=== PATIENT | male | born 1960 | race Caucasian/White ===

== ENCOUNTER → 2018-10-08 17:17 | Outpatient (CLI) | payer MEDICARE, SELFPAY ==
[2018-10-08 17:40] LABS: Basophils # 0.1 K/mm3 (0-0.2); Basophils % 0.7 % (0.1-2.0); Eosinophils # 0.2 K/mm3 (0.0-0.4); Eosinophils % 1.6 % (0.1-12.0); Hematocrit 50.8 % (42.0-52.0); Hemoglobin 15.9 g/dL (14.1-18.0); Lymphocytes # 2.4 K/mm3 (0.7-4.5); Lymphocytes % 23.5 % (10-50); Mean Corpuscular HGB Conc 31.3 g/dL (31.8-35.4); Mean Corpuscular Hemoglobin 33.2 pg (27.0-31.2); Mean Corpuscular Volume 105.9 fl (80-94); Mean Platelet Volume 7.8 fl (7.4-10.4); Monocytes # 0.7 K/mm3 (0.1-1.0); Monocytes % 6.8 % (1.7-9.3); Neutrophils % 67.5 % (37.0-80.0); Platelet Count 224 K/mm3 (142-424); Red Blood Count 4.79 M/mm3 (4.60-6.20); Red Cell Distribution Width 13.6 % (11.5-17.5); White Blood Count 10.3 K/mm3 (4.8-10.8)
[2018-10-08 18:08] LABS: Erythrocyte Sedimentation Rate 15 mm/hr (0-20)
[2018-10-08 19:49] LABS: Hemoglobin A1C 7.5 % (0.0-7.0)
[2018-10-08 20:02] LABS: Alanine Aminotransferase 31 U/L (12-78); Albumin Level 2.8 gm/dL (3.4-5.0); Albumin/Globulin Ratio 0.7 (1.1-1.8); Alkaline Phosphatase 69 U/L (46-116); Anion Gap 13.9 mEq/L (5-15); Aspartate Amino Transferase 17 U/L (15-37); Bilirubin,Total 0.8 mg/dL (0.2-1.0); Blood Urea Nitrogen 13 mg/dL (7-18); C-Reactive Protein 8.2 mg/L (0.0-0.9); Calcium 8.7 mg/dL (8.5-10.1); Carbon Dioxide 28 mmol/L (21.0-32.0); Chloride 101 mmol/L (98-107); Estimated Glomerular Filt Rate 87 ml/min (>60); GFR (African American) 105 ML/MIN (>60); Globulin 4.3 gm/dl (1.3-3.2); Glucose 159 mg/dL (74-106); Potassium 3.9 mmoL/L (3.5-5.1); Sodium 139 mmol/L (136-145); Total Protein,Serum 7.1 gm/dL (6.4-8.2)
== END ==
PROVIDERS: Visit Provider Podiatrist
DX: L08.9 Local infection of the skin and subcutaneous tissue, unspecified (principal); Z51.89 Encounter for other specified aftercare; E11.9 Type 2 diabetes mellitus without complications
CPT/HCPCS: 36415; 80053; 83036; 85025; 85651; 86140

== ENCOUNTER 2018-10-10 20:35 | Observation (INO) ==
--- NOTE | 2018-10-10 21:55 | Emergency Department Note ---
ED Disposition Clinical Impression: Diabetic foot infection, Left leg swelling, Elevated d-dimer Disposition: Admitted as Observation Condition on Discharge: Good (Stable) Time of Disposition: 01:30 - Critical Care Critical Care Time: No Attestation: On 10/10/18, the high probability of a clinically significant, sudden or life threatening deterioration of the following system(s) required my full and direct attention, intervention and personal management. The time I documented below is in addition to time spent performing reported procedures but includes the following listed in this critical care notation. Medical Decision Making - Medical Records Medical records reviewed: Yes: I reviewed the patient's medical records. - Kenneth Inquiry Pt receiving controlled substance: No Kenneth was queried for this patient: No Vital Signs: 10/10/18 21:08 10/10/18 23:12 Temperature 98.6 F Temperature Source Oral Pulse Rate [Right Brachial] 105 H 86 Respiratory Rate 18 14 Blood Pressure [Right Arm] 126/66 143/73 H Blood Pressure Mean [Right Arm] 86 96 Blood Pressure Source [Right Arm] Automatic Cuff Automatic Cuff Blood Pressure Position [Right Arm] Sitting Sitting 02 Sat by Pulse Oximetry 95 95 Oxygen Delivery Method Room Air Room Air - Lab Data Lab results reviewed: Yes: I reviewed the patient's lab results. Lab Results 10/10/18 22:58: WBC 7.9, RBC 4.63, Hgb 14.8, Hct 44.0, MCV 95.1 H, MCH 32.0 H, MCHC 33.7, RDW 13.2, Plt Count 251, MPV 7.2 L, Neut % (Auto) 66.0, Lymph % (Auto) 22.9, [place] % (Auto) 8.0, Eos % (Auto) 2.2, Baso % (Auto) 0.9, Neut # (Auto) 5.2, Lymph # (Auto) 1.8, [place] # (Auto) 0.6, Eos # (Auto) 0.2, Baso # (Auto) 0.1 10/10/18 22:58: Sodium 131 L, Potassium 4.3, Chloride 98, Carbon Dioxide 25, Anion Gap 12.3, BUN 16, Creatinine 0.94, Estimated Creat Clear 108, Estimated GFR 83, Est GFR ( Amer) 100, Glucose 120 H, Calcium 9.2 10/10/18 22:58: Lactate 1.4 10/10/18 22:58: D-Dimer 820 H* Result diagrams: 10/10/18 22:58 10/10/18 22:58 Orders (Tests/Meds): ED MEDICATIONS Generic Name Dose Route Start Last Admin Trade Name Freq PRN Reason Stop Dose Admin Sodium Chloride 500 mls @ 999 mls/hr 10/10/18 22:00 10/10/18 22:40 Sod Chlor 0.9% 1000ml Bag IV 10/10/18 22:30 999 mls/hr .Q31M MARY Administration Discontinued Medications Generic Name Dose Route Start Last Admin Trade Name Freq PRN Reason Stop Dose Admin Clindamycin Phosphate 900 mg/ 106 mls @ 100 mls/hr 10/10/18 21:49 10/10/18 22:40 Sodium Chloride IV 10/10/18 22:52 100 mls/hr ONCE ONE Administration Protocol ORDERS Category Date Time Status Foot XR left minimum 3 views [XR foot LT min 3V] Stat Exams 10/10/18 21:48 Taken Blood Culture Stat Micro 10/10/18 22:58 Received Wound Culture and Gram Stain Stat Micro 10/10/18 23:18 Results - Radiology Data #1 Image(s): Foot/Toes Image Reviewed: Yes I reviewed the patient's radiology image Preliminary Findings: Normal/NAD (No f.b. No osteomyelitis. No fracture noted.) Medical Decision Narrative: 21:59 Pt evaluated. Labs, IV fluids, blood and wound cultures ordered. X-ray of left foot ordered. Clindamycin 900 mg IVPB ordered. LLE venous doppler ordered, but study not available at night. Pt aware. 01:00 All labs reviewed. X-ray ordered. Unable to obtain venous US of LLE now. I will discuss case with Dr. Myrick regarding admission of this pt. Pt and aware of results of work up, diagnosis and care plan. They understand, agree and all questions answered. 01:[address] Myrick. She has agreed to accept care/admission of this pt. Wound/Laceration HPI - General Chief Complaint: Wound/Laceration Stated Complaint: infection in foot fever Time Seen by Provider: 10/10/18 21:44 Mode of Arrival: Ambulatory Source of Information: Patient, Spouse Limitations: No Limitations Description of Symptoms (Recalled from ER Triage Doc. by RN): Pt had a spilnter in his foot about 10 days ago that he is worried is now infected. - History of Present Illness HPI narrative: Pt is here in the ER for evaluation of left foot infection. Pt has IDDM and saw his PCP on Sunday this week. Pt has been taking Bactrim DS and Keflex. He has persistent left foot and leg swelling without calf pain. He apparently had a fever over 100 F at home. No fever here in ER. Pt and have apparently been manipulating and squeezing distal plantar area of foot where he has an open wound. Td UTD. No other complaints. Pt mainly here concerned about left leg and foot swelling. He has been favoring his right foot when ambulating. - Related Data Home Medications Medication Instructions Recorded Confirmed amitriptyline 50 mg tablet PO #90 tab 10/08/18 10/08/18 atorvastatin 40 mg tablet PO #90 tab 10/08/18 10/08/18 dapagliflozin 10 mg tablet PO #90 tab 10/08/18 10/08/18 divalproex 500 mg tablet,delayed PO #180 tab 10/08/18 10/08/18 release duloxetine 60 mg capsule,delayed 60 mg PO DAILY 10/08/18 10/08/18 release duloxetine 60 mg capsule,delayed PO #90 cap 10/08/18 10/08/18 release gabapentin 800 mg tablet PO #120 tab 10/08/18 10/08/18 hydrocodone 7.5 mg-acetaminophen PO #120 tab 10/08/18 10/08/18 325 mg tablet levothyroxine 300 mcg tablet PO #87 tab 10/08/18 10/08/18 lisinopril 10 mg tablet PO #90 tab 10/08/18 10/08/18 metoprolol succinate ER 25 mg PO #90 tab 10/08/18 10/08/18 tablet,extended release 24 hr omeprazole 20 mg capsule,delayed PO #90 cap 10/08/18 10/08/18 release Previous Rx's Medication Instructions Recorded Sulfamethoxazole/Trimethoprim 1 each PO BID 10 Days #20 tab 10/08/18 [Bactrim DS tablet] cephALEXin [Keflex 500mg Cap] 500 mg PO Q6H 10 Days #40 cap 10/08/18 Allergies Allergy/AdvReac Type Severity Reaction Status Date / Time No Known Allergies Allergy Verified 10/08/18 16:45 [facility] History - Hepatitis A Screen Drug use history?: No High risk sexual behaviors?: No History of sexually transmitted infection?: No Currently employed?: No Childcare worker?: No Do you have indoor plumbing?: Yes Do you have electricity?: Yes Attestation statement:: This patient has been screened for Hepatitis A risk factors. I have reviewed the patient's past medical history: Yes Medical History: Reports:: Depression, Diabetes Mellitus Type 2, Hyperlipidemia, Hypertension Other Medical History: Reports: Hypothyroidism Other Surgeries: Yes: Colonoscopy, Other (right hip) Fractures: Yes (HIP AND BACK) - Social History Smoking Status: Current every day smoker # Packs/Day (cigarettes): 1 Alcohol Intake: never Occupational Status: other Housing: house - Psychiatric History Pschychiatric History:: Reports:: Depression Family Hx:: No significant family history ROS Obtained: Yes All systems reviewed & no additional complaints - Constitutional Constitutional: Reports system reviewed and no additional complaints, except as docu, Reports as per HPI, Reports fever(s) - Eyes Eyes: Reports system reviewed and no additional complaints, except as docu - ENT Ears, Nose, Mouth, and Throat: Reports system reviewed and no additional complaints, except as docu - Cardiovascular Cardiovascular: Reports system reviewed and no additional complaints, except as docu - Respiratory Respiratory: Yes system reviewed and no additional complaints, except as docu - Gastrointestinal Gastrointestingal: Reports: system reviewed and no additional complaints, except as docu - Genitourinary Male Genitourinary: Reports system reviewed and no additional complaints, except as docu - Musculoskeletal Musculoskeletal: Reports system reviewed and no additional complaints, except as docu, Reports as per HPI (Left foot infection with swelling of foot, ankle and leg.) - Integumentary/Breasts Skin/Breast: Reports system reviewed and no additional complaints, except as docu, Reports as per HPI (Left foot wound/infection.) - Neurologic Neurologic: Reports system reviewed and no additional complaints, except as docu - Endocrine Endocrine: Reports system reviewed and no additional complaints, except as docu, Reports as per HPI (IDDM) - Hematologic/Lymphatic Henatologic/Lymphatic: Reports system reviewed and no additional complaints, except as docu - Allergic/Immunologic Allergic/Immunologic: Reports system reviewed and no additional complaints, except as docu Physical Exam - General General appearance: alert, in no apparent distress - Head Head exam: atraumatic, normocephalic, normal inspection - Eye Eye exam: Present: PERRL, EOMI - ENT ENT exam: Present: mucous membranes moist - Neck Neck exam: Present: trachea midline - Chest Chest inspection: Present: normal inspection, symmetric chest wall rise - Respiratory Respiratory exam: Present: normal lung sounds bilaterally. Absent: respiratory distress, wheezes - Cardiovascular Cardiovascular exam: Present: regular rate, normal heart sounds - Abdominal Exam Abdominal exam: Present: soft, normal bowel sounds. Absent: tenderness, guard ing, rebound, rigidity - Extremities Exam Extremities exam: Present: full ROM, normal capillary refill, other ((+) nonpitting swelling at left leg, ankle and foot.). Absent: calf tenderness - Neurological Exam Neurological exam: Present: alert, oriented X3, CN II-XII intact - Psychiatric Psychiatric exam: Present: normal affect, normal mood - Skin Skin exam: Present: warm, dry, other ((+) mild swelling to distal sole of left foot with ~1.5 cm D open wound with signs of serosanguinous discharge. Wound not malodorous. No fluctuance. )
[2018-10-10 23:14] LABS: Basophils # 0.1 K/mm3 (0-0.2); Basophils % 0.9 % (0.1-2.0); Eosinophils # 0.2 K/mm3 (0.0-0.4); Eosinophils % 2.2 % (0.1-12.0); Hemoglobin 14.8 g/dL (14.1-18.0); Lymphocytes # 1.8 K/mm3 (0.7-4.5); Lymphocytes % 22.9 % (10-50); Mean Corpuscular HGB Conc 33.7 g/dL (31.8-35.4); Mean Corpuscular Volume 95.1 fl (80-94); Mean Platelet Volume 7.2 fl (7.4-10.4); Monocytes # 0.6 K/mm3 (0.1-1.0); Neutrophils # 5.2 K/mm3 (1.8-7.8); Platelet Count 251 K/mm3 (142-424); Red Blood Count 4.63 M/mm3 (4.60-6.20); Red Cell Distribution Width 13.2 % (11.5-17.5); White Blood Count 7.9 K/mm3 (4.8-10.8)
[2018-10-10 23:17] LABS: Anion Gap 12.3 mEq/L (5-15); Calcium 9.2 mg/dL (8.5-10.1)
--- NOTE | 2018-10-11 07:07 | Non-Invasive Vascular Report ---
"Venous Exam Indications: 729.5 Pain in limb. IMPRESSIONS 1. There is no evidence of significant Reflux. 2. Superficial vein thrombosis involving the left great saphenous vein History: Risk factors: Recent trauma. Left lower extremity venous duplex evaluation. Doppler flow study including spectral analysis, color and krishna scale imaging. CRITICAL FINDINGS - Reported to: FERNANDO - Read back and verified. - 10/11/18699 - [facility] Tables: Venous flow and imaging: + + + + |Location |Overall |Flow properties | + + + + |Left common femoral |Patent |Normal phasicity; | | | |spontaneous; normal | | | |augmentation; | | | |compressible | + + + + |Left saphenofemoral |Patent |Compressible | |junction | | | + + + + |Left profunda femoral |Patent |Compressible | + + + + |Left femoral |Patent |Normal phasicity; | | | |spontaneous; normal | | | |augmentation; | | | |compressible | + + + + |Left greater saphenous |Partially occluded|Diminished phasicity; | | | |diminished spontaneity; | | | |diminished augmentation; | | | |partially compressible | + + + + |Left popliteal |Patent |Normal phasicity; | | | |spontaneous; normal | | | |augmentation; | | | |compressible | + + + + |Left posterior tibial |Patent |Compressible | + + + + |Left peroneal |Patent |Compressible | + + + + |Left gastrocnemius |Patent |Compressible | + + + + |Left soleal |Patent |Compressible | + + + + (Report amended ) Electronically signed by: Harry Perez [id number]"
--- NOTE | 2018-10-11 07:14 | Pharmacy Consult Notes ---
[facility] Pharmacy VTE Monitoring - Patient Demographics Admission date: 10/11/18 Report Date: 10/11/18 Time: 07:14 Allergies/Adverse Reactions: Patient Allergies No Known Allergies Allergy (Verified 10/08/18 16:45) Height: 1.8 m Weight: 88.479 kg Patient Problems: Current Active Problems (Updated 10/11/18 @ 03:06 by Tyson Gerer III DO) Diabetic foot infection (Acute) Left leg swelling (Acute) Elevated d-dimer (Acute) - VTE Risk Labs: VTE Related Lab Results Hgb 14.8 g/dL (14.1-18.0) 10/10/18 22:58 Hct 44.0 % (42.0-52.0) 10/10/18 22:58 Plt Count 251 K/mm3 (142-424) 10/10/18 22:58 BUN 16 mg/dL (7-18) 10/10/18 22:58 Creatinine 0.94 mg/dL (0.70-1.30) 10/10/18 22:58 Estimated Creat Clear 108 mL/min (50-200) 10/10/18 22:58 Was VTE Risk Assessment Performed: Yes VTE Score: 5 VTE Risk Level: Low Risk Clinical Trial Participant: No - Prophylaxis VTE Prophylaxis Ordered?: Yes Types of VTE Prophylaxis: TEDS Knee High, Pharmacological Pharmacologic Type: Enoxaparin
[2018-10-11 07:55] LABS: Basophils # 0.1 K/mm3 (0-0.2); Eosinophils # 0.2 K/mm3 (0.0-0.4); Eosinophils % 2.7 % (0.1-12.0); Hematocrit 43.2 % (42.0-52.0); Hemoglobin 13.8 g/dL (14.1-18.0); Lymphocytes # 2.9 K/mm3 (0.7-4.5); Lymphocytes % 36.4 % (10-50); Mean Corpuscular HGB Conc 31.9 g/dL (31.8-35.4); Mean Corpuscular Volume 99.3 fl (80-94); Mean Platelet Volume 7.2 fl (7.4-10.4); Monocytes # 1.1 K/mm3 (0.1-1.0); Neutrophils # 3.8 K/mm3 (1.8-7.8); Neutrophils % 46.8 % (37.0-80.0); Platelet Count 218 K/mm3 (142-424); Red Blood Count 4.35 M/mm3 (4.60-6.20); Red Cell Distribution Width 13.3 % (11.5-17.5)
[2018-10-11 07:57] LABS: Anion Gap 15.5 mEq/L (5-15); Calcium 8.9 mg/dL (8.5-10.1)
--- NOTE | 2018-10-11 11:49 | H&P/Discharge Summary ---
General - General Admission date:: 10/11/18 Discharge date: 10/11/18 *Admission Date: 10/11/18 *Chief complaint: left lower leg and foot pain *History of present illness: Mr. Anne is a 58-year-old male with a history of diabetes, neuropathy, chronic back pain, hepatitis C, and hemochromatosis. He states his primary care provider is Dr. Miranda. Approximately 10 days ago he stepped on a wood splinter and pulled it out of his own foot. His foot then became infected. He states he has been seen in the emergency room for this twice and then also saw Dr. Londono of podiatry. He states cultures were taken of the wound and he was started on antibiotics. The redness continued to move from his foot up his left lower leg and he began having significant pain and developed a fever, therefore he presented to the emergency room for further evaluation and treatment. He and his have apparently been manipulating and squeezing the distal plantar area of the foot where he has an open wound. He was admitted and started on IV fluids. Labs, blood and wound cultures, and an x-ray of the left foot were ordered. He was given clindamycin IV and a left lower extremity venous Doppler was ordered. [facility] History I have reviewed the patient's past medical history: Yes Medical History: Reports:: Depression, Diabetes Mellitus Type 2, Hyperlipidemia, Hypertension, MRSA Denies:: Cancer *Have you ever received a pneumonia vaccine?: Yes *Have you received a flu vaccine this season?: Yes Other Medical History: Reports: Hypothyroidism, Thyroid Disease, Other (chronic back pain, neuropathy, Hep C) Laterality Cases: Right: Total Hip Replacement Other Surgeries: Yes: Colonoscopy, Other (right hip, back sx) Amputation: No Fractures: Yes (HIP AND BACK) - *Social History Educational Level: Attended College Smoking Status: Current every day smoker Tobacco Type: cigarettes # Packs/Day (cigarettes): 1 Alcohol Intake: former Alcohol Intake Frequency:: other *Occupational Status:: other Housing: house *Travel in the last 8 weeks: None - Psychiatric History Expresses thoughts of harming self/others: None Suicide Plan Description: No Plan Pschychiatric History:: Reports:: Depression Family Hx:: Heart Attack, Hyperlipidemia, Hypertension, Stroke Review of Systems - Constitutional Reports chills, Reports fever(s) - Eyes Denies blurry vision, Denies double vision - ENT Denies nasal congestion, Denies sore throat - *Cardiovascular Denies chest pain, Denies shortness of breath - *Respiratory Denies cough, Denies shortness of breath - *Gastrointestinal Denies abdominal pain, Denies loose stools, Denies nausea, Denies vomiting - *Genitourinary Denies difficulty urinating, Denies painful urination - *Musculoskeletal Reports joint pain (left leg and foot pain), Reports back pain - *Neurologic Denies headache(s), Denies dizziness, Denies weakness Exam Vital signs and Labs for Last 24 Hours: Temp Pulse Resp BP Pulse Ox 97.6 F 74 17 141/77 H 97 10/11/18 08:00 10/11/18 08:00 10/11/18 08:00 10/11/18 08:00 10/11/18 08:00 Laboratory Results - last 24 hr 10/10/18 22:58: WBC 7.9, RBC 4.63, Hgb 14.8, Hct 44.0, MCV 95.1 H, MCH 32.0 H, MCHC 33.7, RDW 13.2, Plt Count 251, MPV 7.2 L, Neut % (Auto) 66.0, Lymph % (Auto) 22.9, [place] % (Auto) 8.0, Eos % (Auto) 2.2, Baso % (Auto) 0.9, Neut # (Auto) 5.2, Lymph # (Auto) 1.8, [place] # (Auto) 0.6, Eos # (Auto) 0.2, Baso # (Auto) 0.1 10/10/18 22:58: Sodium 131 L, Potassium 4.3, Chloride 98, Carbon Dioxide 25, Anion Gap 12.3, BUN 16, Creatinine 0.94, Estimated Creat Clear 108, Estimated GFR 83, Est GFR ( Amer) 100, Glucose 120 H, Calcium 9.2 10/10/18 22:58: Lactate 1.4 10/10/18 22:58: D-Dimer 820 H* 10/11/18 06:37: POC Glucose 61 L 10/11/18 06:55: WBC 8.0, RBC 4.35 L, Hgb 13.8 L, Hct 43.2, MCV 99.3 H, MCH 31.7 H, MCHC 31.9, RDW 13.3, Plt Count 218, MPV 7.2 L, Neut % (Auto) 46.8, Lymph % (Auto) 36.4, [place] % (Auto) 13.0 H, Eos % (Auto) 2.7, Baso % (Auto) 1.0, Neut # (Auto) 3.8, Lymph # (Auto) 2.9, [place] # (Auto) 1.1 H, Eos # (Auto) 0.2, Baso # (Auto) 0.1 10/11/18 06:55: Sodium 137, Potassium 3.5, Chloride 99, Carbon Dioxide 26, Anion Gap 15.5 H, BUN 15, Creatinine 0.96, Estimated Creat Clear 106, Estimated GFR 81, Est GFR ( Amer) 98, Glucose 75 D, Calcium 8.9 10/11/18 07:04: POC Glucose 74 10/11/18 11:19: POC Glucose 81 I & O for Last 24 hours: Intake & Output 10/08/18 10/09/18 10/10/18 10/11/18 11:59 11:59 11:59 11:59 Intake Total 1580 / 1580 Output Total 850 / 850 Balance 730 / 730 Weight 195 lb 1 oz Microbiology Reports for the Last 24 Hours: Microbiology 10/10/18 23:18 Foot,Left Gram Stain - Final - Constitutional no acute distress - *Routine HEENT Exam Head: Present: normocephalic Eye: Present: EOMI, PERRL ENT: Present: mucous membranes moist - *Routine Neck Exam Present: supple. Absent: lymphadenopathy - *Routine Respiratory Exam Present: CTA bilaterally - *Routine Cardiovascular Exam Present: RRR - *Routine Abdominal Exam Present: soft, normoactive bowel sounds. Absent: tenderness - *Routine Extremities Exam Absent: cyanosis, clubbing, edema - *Routine Skin Exam Present: warm. Absent: rash Comments: left foot is wrapped, there is no erythema or edema extending up into the leg, the leg is no longer tender - *Routine Neurological Exam Present: alert, oriented X3 Hospital Course Hospital Course: The patient's d-dimer was elevated therefore he was started on Lovenox and a venous Doppler was ordered. He did have a superficial vein thrombosis of the left great saphenous vein. Samples were taken to the patient of Xarelto 15 mg twice daily. The erythema and pain in his leg did improve with the IV clindamycin. Dr. Londono was consulted, as she had seen the patient on an outpatient basis, for any further recommendations. She changed the dressing on his foot and he was stable to be discharged home with a walking boot and new rx for clindamycin. He will f/u with Dr. Myrick in 1 week. Results Labs on day of discharge: Labs from last 24 hours 10/11/18 10/11/18 10/11/18 11:19 07:04 06:55 WBC RBC Hgb Hct MCV MCH MCHC RDW Plt Count MPV Neut % (Auto) Lymph % (Auto) [place] % (Auto) Eos % (Auto) Baso % (Auto) Neut # (Auto) Lymph # (Auto) [place] # (Auto) Eos # (Auto) Baso # (Auto) D-Dimer Sodium 137 Potassium 3.5 Chloride 99 Carbon Dioxide 26 Anion Gap 15.5 H BUN 15 Creatinine 0.96 Estimated Creat Clear 106 Estimated GFR 81 Est GFR ( Amer) 98 Glucose 75 D POC Glucose 81 74 Lactate Calcium 8.9 10/11/18 10/11/18 10/10/18 06:55 06:37 22:58 WBC 8.0 RBC 4.35 L Hgb 13.8 L Hct 43.2 MCV 99.3 H MCH 31.7 H MCHC 31.9 RDW 13.3 Plt Count 218 MPV 7.2 L Neut % (Auto) 46.8 Lymph % (Auto) 36.4 [place] % (Auto) 13.0 H Eos % (Auto) 2.7 Baso % (Auto) 1.0 Neut # (Auto) 3.8 Lymph # (Auto) 2.9 [place] # (Auto) 1.1 H Eos # (Auto) 0.2 Baso # (Auto) 0.1 D-Dimer 820 H* Sodium Potassium Chloride Carbon Dioxide Anion Gap BUN Creatinine Estimated Creat Clear Estimated GFR Est GFR ( Amer) Glucose POC Glucose 61 L Lactate Calcium 10/10/18 10/10/18 10/10/18 22:58 22:58 22:58 WBC 7.9 RBC 4.63 Hgb 14.8 Hct 44.0 MCV 95.1 H MCH 32.0 H MCHC 33.7 RDW 13.2 Plt Count 251 MPV 7.2 L Neut % (Auto) 66.0 Lymph % (Auto) 22.9 [place] % (Auto) 8.0 Eos % (Auto) 2.2 Baso % (Auto) 0.9 Neut # (Auto) 5.2 Lymph # (Auto) 1.8 [place] # (Auto) 0.6 Eos # (Auto) 0.2 Baso # (Auto) 0.1 D-Dimer Sodium 131 L Potassium 4.3 Chloride 98 Carbon Dioxide 25 Anion Gap 12.3 BUN 16 Creatinine 0.94 Estimated Creat Clear 108 Estimated GFR 83 Est GFR ( Amer) 100 Glucose 120 H POC Glucose Lactate 1.4 Calcium 9.2 DS: Diagnosis - Discharge Diagnosis (1) Acute superficial venous thrombosis of left lower extremity Status: Acute (2) Left leg swelling Status: Acute (3) Elevated d-dimer Status: Acute (4) Diabetic foot infection Status: Acute (5) Hepatitis C Status: Chronic (6) Diabetes Status: Chronic (7) Hypothyroidism Status: Chronic Discharge Plan - Patient Discharge Instructions ACTIVITY: Ambulate as tolerated, Limited activity DIET: continue same diet Patient Instructions: How to Take Care of Your Feet If You Have Diabetes, DI for Diabetes Type 2 - Follow up Plan Follow up with: Valencia Myrick MD [Staff Physician] - 1 week Disposition: Home, Self-Half-Way Medications: Home Medications Medication Instructions Recorded Confirmed Type amitriptyline 50 mg tablet 50 mg PO HS #90 tab 10/08/18 10/11/18 History atorvastatin 40 mg tablet 40 mg PO HS #90 tab 10/08/18 10/11/18 History dapagliflozin 10 mg tablet 10 mg PO DAILY #90 tab 10/08/18 10/11/18 History divalproex 500 mg tablet,delayed 500 mg PO BID #180 tab 10/08/18 10/11/18 History release duloxetine 60 mg capsule,delayed 60 mg PO DAILY 10/08/18 10/11/18 History release gabapentin 800 mg tablet 800 mg PO QID #120 tab 10/08/18 10/11/18 History hydrocodone 7.5 mg-acetaminophen 7.5 - 325 mg PO QID #120 tab 10/08/18 10/11/18 History 325 mg tablet levothyroxine 300 mcg tablet 300 mcg PO DAILY #87 tab 10/08/18 10/11/18 History lisinopril 10 mg tablet 10 mg PO DAILY #90 tab 10/08/18 10/11/18 History metoprolol succinate ER 25 mg 25 mg PO DAILY #90 tab 10/08/18 10/11/18 History tablet,extended release 24 hr omeprazole 20 mg capsule,delayed 20 mg PO DAILY #90 cap 10/08/18 10/11/18 History release Clindamycin HCl [Cleocin HCl] 300 mg PO TID 10 Days #30 cap 10/11/18 Rx Rivaroxaban [Xarelto 15mg tablet] 15 mg PO BIDWM tab 10/11/18 Rx Prescriptions/Medication Reconciliation: New Rivaroxaban [Xarelto 15mg tablet] 15 mg PO BIDWM tab Clindamycin HCl [Cleocin HCl] 300 mg PO TID 10 Days #30 cap Continued levothyroxine 300 mcg tablet 300 mcg PO DAILY #87 tab dapagliflozin 10 mg tablet 10 mg PO DAILY #90 tab lisinopril 10 mg tablet 10 mg PO DAILY #90 tab amitriptyline 50 mg tablet 50 mg PO HS #90 tab atorvastatin 40 mg tablet 40 mg PO HS #90 tab gabapentin 800 mg tablet 800 mg PO QID #120 tab divalproex 500 mg tablet,delayed release 500 mg PO BID #180 tab omeprazole 20 mg capsule,delayed release 20 mg PO DAILY #90 cap hydrocodone 7.5 mg-acetaminophen 325 mg tablet 7.5 - 325 mg PO QID #120 tab metoprolol succinate ER 25 mg tablet,extended release 24 hr 25 mg PO DAILY #90 tab duloxetine 60 mg capsule,delayed release 60 mg PO DAILY Discontinued cephALEXin [Keflex 500mg Cap] 500 mg PO Q6H Sulfamethoxazole/Trimethoprim [Bactrim DS tablet] 1 each PO BID
--- NOTE | 2018-10-11 15:02 | Progress Note ---
Subjective Date: 10/11/18 Time: 13:10 Principal diagnosis: LLE cellulitis, ulcer Interval history: Patient was last seen in my office outpatient 10/08/2018. He presented for evaluation after stepping on a wood splinter which he states he dug out the week before. Was started on Bactrim and Keflex. Patient states the area "popped/burst open 2 days ago and there was some drainage where there had not been before". Patient was afebrile in the hospital but states he felt ill and that is why came in yesterday. New x-rays were taken which were negative for osseous changes. Patient had a Doppler ordered which showed "a blood clot" per patient. They have been doing dr corrales changes at home daily. PN: Obj Ex Vital signs: Temp Pulse Resp BP Pulse Ox 97.6 F 74 17 141/77 H 97 10/11/18 08:00 10/11/18 08:00 10/11/18 08:00 10/11/18 08:00 10/11/18 08:00 - Constitutional no acute distress - Routine HEENT Exam Head: Present: normocephalic - Routine Neck Exam Present: supple - Routine Respiratory Exam Present: accessory muscle use - Routine Abdominal Exam Present: soft - Routine Extremities Exam Present: edema, tenderness. Absent: calf tenderness - Detailed Lower Extremity Exam Bottom foot image: 1 - Left lower extremity has edema compared to the right. There is a small wound on the plantar aspect of the left foot under the fourth metatarsal. The ulcer wound base is 100% granular and measures 0.4 x 0.5 x 0.1 cm. It does not probe to the bone. New spot just dorsal to that ulcer, measures 0.2 x 0.3 x 0.2cm. Serosangious drainage noted. It is not probe deeply. Progress Note: A&P (1) Acute superficial venous thrombosis of left lower extremity Status: Acute Current Visit: Yes (2) Left leg swelling Status: Acute Current Visit: Yes (3) Elevated d-dimer Status: Acute Current Visit: Yes (4) Diabetic foot infection Status: Acute Current Visit: Yes (5) Hepatitis C Status: Chronic Current Visit: Yes (6) Diabetes Status: Chronic Current Visit: No (7) Hypothyroidism Status: Chronic Current Visit: Yes (8) Puncture wound of left foot without foreign body Status: Acute Current Visit: Yes Assessment and Plan for All Diagnoses:: LEFT FOOT PUNCTURE WOUND, DM Ulcer S/p left puncture with wood DOI: "last week" I discussed the x-rays and ultrasound with Dr. Perez today. There is some hypo-genetic response around the foot which could be indicative of early phlegmon or abscess. No evidence of foreign body. X-rays shown, reviewed and discussed with the patient. I discussed in detail the risk of a puncture wound. We discussed how puncture wounds can cause soft tissue infection called cellulitis. Oral antibiotics are necessary to prevent infection. Puncture wounds through the shoes can inoculate the bottom of the foot and depending on how deep the puncture was, there is a risk for osteomyelitis. Patient was barefoot. I explained that there is no radiographic evidence of bone involvement currently. But it takes 10-14 days for bone infection to show on x-ray. I explained that if daily local wound care is not performed he can get an infection. If the skin heals prior to the puncture tra ct and abscess can develop which would require surgical intervention for an incision and drainage procedure. Prcoedure: Bedside incision and drainage: The puncture wound site was cleansed with Betadine. A 15 blade was used to make a stab incision over the new ulcer. A hemostat was used to spread the subcutaneous tissue layer. No purulence expressed. There was some serosanguineous drainage which was cultured. The area was squeezed and probed and no purulence or deep infection expressed. No increased pain. Betadine was used to cleanse the area. A Betadine dry sterile dressing was then applied to the left foot. Partial weightbearing to the heel and a short fracture boot. 1. New wound culture from bedside I&D 2. Daily dressing changes to foot with betadine DSD 3. Dispense short fracture boot prior to discharge, PWB to heel with walker 4. Case mgmt for walker 5. No surgical intervention planned 6. Stable from Podiatry stand point 7. Follow up next week as scheduled with Dr. Londono
== END 2018-10-11 15:39 | disposition home or self-care (01) ==
LOC: 2ND 20:35 → ER 20:35 → 2ND 10-11 04:39
PROVIDERS: ADMIT Emergency Medicine; ATTEND Emergency Medicine
DX: E03.9 Hypothyroidism, unspecified; B19.20 Unspecified viral hepatitis C without hepatic coma; L08.9 Local infection of the skin and subcutaneous tissue, unspecified; M79.89 Other specified soft tissue disorders; E11.69 Type 2 diabetes mellitus with other specified complication; Z79.899 Other long term (current) drug therapy; E78.5 Hyperlipidemia, unspecified; R79.89 Other specified abnormal findings of blood chemistry; I10 Essential (primary) hypertension
CPT/HCPCS: 73630; 76882; 80048; 82962; 83605; 85025; 85378; 87040; 87070; 87205; 93971; 96365; 96366; 96372; 99284; G0378

== ENCOUNTER → 2018-11-20 13:16 | Outpatient (POV) | payer MEDICARE, SELFPAY | DX: Z00.00 Encounter for general adult medical examination without abnormal findings (principal) ==

== ENCOUNTER → 2019-02-10 14:41 | Outpatient (CLI) | payer MEDICARE, MEDICAID, SELFPAY ==
--- NOTE | 2019-02-10 15:15 | US_ITS ---
APPROVED REPORT Exam Type: Ankle to Brachial Index Retail Aide: RT Enrique(R) Indications Claudication: Bilaterally Non-healing Ulcer: Rest Pain: Bilaterally Current Smoker Risk Factors History of PAD: Bilaterally Current Smoker Stents placed in both legs Pressures/Indices Right Indices Left Indices Brachial 137.00 mmHg Brachial 137.00 mmHg Low Thigh 127.00 mmHg 0.93 Low Thigh 158.00 mmHg 1.15 Calf 150.00 mmHg 1.09 Calf 140.00 mmHg 1.02 Ankle(PT) 86.00 mmHg 0.63 Ankle(PT) 140.00 mmHg 1.02 Ankle(DP) 140.00 mmHg 1.02 Ankle(DP) 137.00 mmHg 1.00 Digit 113.00 mmHg 0.82 Digit 81.00 mmHg 0.59 Conclusion RT BELKIS=0.6 LT BELKIS=1.0 RT TBI=0.8 LT TBI=0.6 Low Rt BELKIS suggesting moderate arterial disease Normal waveforms Electronically signed by : Harry Perez MD 02/11/2019 18:14:36
--- NOTE | 2019-02-10 15:37 | XR_ITS ---
PROCEDURE: XR FOOT WT BEARING LT 3V CLINICAL INDICATION: pain, wound First digit infection COMPARISON: Foot L from 10/08/2018 FINDINGS: No fracture or dislocation. No lytic or blastic change. There is normal mineralization. There are minimal osteoarthritic changes at the 1st MTP joint and interphalangeal joint. Other findings:There is mild pes planus IMPRESSION: No change with no acute finding. Dictated by: Harry Perez MD 02/10/2019 16:04 Electronically signed by Harry Perez MD in [place] 02/10/2019 16:04
[2019-02-10 17:03] LABS: Basophils % 0.6 % (0.1-2.0); Eosinophils % 0.7 % (0.1-12.0); Hematocrit 52.7 % (42.0-52.0); Hemoglobin 17.1 g/dL (14.1-18.0); Lymphocytes # 1.6 K/mm3 (0.7-4.5); Lymphocytes % 25.4 % (10-50); Mean Corpuscular HGB Conc 32.5 g/dL (31.8-35.4); Mean Corpuscular Hemoglobin 32.4 pg (27.0-31.2); Mean Corpuscular Volume 99.7 fl (80-94); Mean Platelet Volume 8.4 fl (7.4-10.4); Monocytes # 0.9 K/mm3 (0.1-1.0); Monocytes % 14.6 % (1.7-9.3); Neutrophils # 3.7 K/mm3 (1.8-7.8); Neutrophils % 58.7 % (37.0-80.0); Platelet Count 156 K/mm3 (142-424); Red Blood Count 5.28 M/mm3 (4.60-6.20); Red Cell Distribution Width 13.8 % (11.5-17.5); White Blood Count 6.3 K/mm3 (4.8-10.8)
[2019-02-10 17:53] LABS: Erythrocyte Sedimentation Rate 3 mm/hr (0-20)
[2019-02-10 17:54] LABS: Hemoglobin A1C 7.6 % (0.0-7.0)
[2019-02-10 18:34] LABS: Alanine Aminotransferase 100 U/L (12-78); Albumin Level 2.9 gm/dL (3.4-5.0); Albumin/Globulin Ratio 0.6 (1.1-1.8); Alkaline Phosphatase 89 U/L (46-116); Anion Gap 13.3 mEq/L (5-15); Aspartate Amino Transferase 81 U/L (15-37); Bilirubin,Total 1.7 mg/dL (0.2-1.0); Blood Urea Nitrogen 21 mg/dL (7-18); C-Reactive Protein 7.4 mg/dL (0.0-0.9); Calcium 8.9 mg/dL (8.5-10.1); Carbon Dioxide 29 mmol/L (21.0-32.0); Chloride 97 mmol/L (98-107); Creatinine,Serum 0.85 mg/dL (0.70-1.30); Estimated Glomerular Filt Rate 93 ml/min (>60); GFR (African American) 112 ML/MIN (>60); Globulin 4.9 gm/dl (1.3-3.2); Glucose 141 mg/dL (74-106); Potassium 4.3 mmoL/L (3.5-5.1); Sodium 135 mmol/L (136-145); Total Protein,Serum 7.8 gm/dL (6.4-8.2)
== END ==
LOC: LAB.DROPOF 14:42 → RT 14:51
PROVIDERS: Visit Provider Podiatrist
DX: Z51.89 Encounter for other specified aftercare (principal); R09.89 Other specified symptoms and signs involving the circulatory and respiratory systems; E11.40 Type 2 diabetes mellitus with diabetic neuropathy, unspecified
CPT/HCPCS: 36415; 73630; 80053; 83036; 85025; 85651; 86140; 87070; 87077; 87186; 87205; 93923

== ENCOUNTER → 2019-02-10 16:17 | Outpatient (CLI) | payer MEDICARE, SELFPAY | PROVIDERS: Visit Provider Podiatrist | DX: Z51.89 Encounter for other specified aftercare (principal); R09.89 Other specified symptoms and signs involving the circulatory and respiratory systems; E11.40 Type 2 diabetes mellitus with diabetic neuropathy, unspecified | CPT/HCPCS: 36415; 73630; 80053; 83036; 85025; 85651; 86140; 87070; 87077; 87186; 87205; 93923 ==